=== PATIENT | male | born 1950 | race Caucasian/White ===

== ENCOUNTER → 2018-03-13 | Emergency (ER) | payer MEDICARE, OTHER ==
[~2018-03-13] VITALS: Ht 175.3 cm; Wt 91.5 kg
[~2018-03-13] MED LIST: HYDR-3965 PO; HYDR25TA4 PO; HYDROcodone/acetaminophen 10/325mg tab PO ONE; LISI40TA4 PO
[2018-03-13 06:11] VITALS: BP 155/88
== END | disposition home or self-care (01) ==
LOC: ER 04:15
DX: K08.89 Other specified disorders of teeth and supporting structures (principal); I10 Essential (primary) hypertension; F17.200 Nicotine dependence, unspecified, uncomplicated; Z79.899 Other long term (current) drug therapy
CPT/HCPCS: 99283